=== PATIENT | female | born 2005 | race Hispanic/Latino ===

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

== ENCOUNTER 2024-06-24 19:36 | Emergency (ER) | payer BC ==
[~2024-06-24] VITALS: Ht 154.9 cm; Wt 96.2 kg
[~2024-06-24 19:36] MED LIST: CETI10TA57 PO; L.AC1CAP6 PO
[2024-06-24] MEDS: cePHALexin 500 MG CAPSULE PO ONE (20:18)
[2024-06-24] MEDS: NEOMY SULF/BACITRA/POLYMYXIN B 1 EACH PACKET TP ONE (20:18)
[2024-06-24] MEDS ORDERED: CEPH500T PO (20:54)
[2024-06-24] MEDS ORDERED: MUPI22O TP (20:54)
[2024-06-24 21:27] VITALS: BP 141/84; PULSE 95; RESP 18; TEMP 97.8; O2SAT 99
== END 2024-06-24 21:41 | disposition home or self-care (01) ==
LOC: EDH 19:36
DX: S51.851A Open bite of right forearm, initial encounter (principal); F84.0 Autistic disorder; Z79.899 Other long term (current) drug therapy; W59.11XA Bitten by nonvenomous snake, initial encounter; Y93.89 Activity, other specified; Y92.89 Other specified places as the place of occurrence of the external cause; Y99.8 Other external cause status